=== PATIENT | female | born 1990 | race Two or more races ===

== ENCOUNTER 2021-12-20 06:25 | Inpatient (IN) | payer OTHER ==
[2021-12-20 07:36] VITALS: BMI 43.4
[2021-12-20] MEDS ORDERED: CITRIC ACID/SODIUM CITRATE 30 ML UNIT-DOSE CUP PO ONE (07:38)
[2021-12-20] MEDS ORDERED: ELECTROLYTE-148 SOLN 1,000 ML IV SCH (07:45)
[2021-12-20] MEDS ORDERED: morphine SULFATE/PF 1 MG/2 ML (2cc Syringe - QUVA) ONE (07:52)
[2021-12-20] MEDS ORDERED: PHENYLEPHRINE HCL 10 MG/1 ML SINGLE DOSE VIAL ONE (07:53)
[2021-12-20] MEDS ORDERED: ePHEDrine SULFATE 50 MG/1 ML AMPULE ONE (07:53)
[2021-12-20] MEDS ORDERED: PROPOFOL 20 ML ONE (07:53)
[2021-12-20] MEDS ORDERED: SUCCINYLCHOLINE CHLORIDE 200 MG/10 ML SYRINGE ONE ×2 (07:53→12:49)
[2021-12-20] MEDS ORDERED: ACETAMINOPHEN 325 MG TABLET (FP) PO PRN (09:30)
[2021-12-20] MEDS ORDERED: METHYLERGONOVINE MALEATE 0.2 MG/1 ML AMP IM PRN (09:30)
[2021-12-20] MEDS ORDERED: morphine SULFATE/PF 1 MG/2 ML (2cc Syringe - QUVA) EP ONE (09:37)
[2021-12-20] MEDS ORDERED: ONDANSETRON 4 MG/2 ML VIAL IVPUSH PRN (09:37)
[2021-12-20] MEDS ORDERED: ONDANSETRON 4 MG/2 ML VIAL ONE (09:46)
[2021-12-20] MEDS: PRENATAL VITAMINS W/ FOLIC ACID TABLET (FP) PO SCH (11:35)
[2021-12-20] MEDS ORDERED: DEXAMETHASONE SOD PHOSPHATE 4 MG/1 ML VIAL ONE (12:47)
[2021-12-20] MEDS ORDERED: PROPOFOL 40 ML ONE (12:49)
[2021-12-20] MEDS ORDERED: ROCURONIUM BROMIDE 50 MG/5 ML SYRINGE ONE (12:49)
[2021-12-20] MEDS ORDERED: MIDAZOLAM HCL 2 MG/2 ML SINGLE DOSE VIAL ONE (12:50)
[2021-12-20] MEDS: OXYTOCIN 20 UNITS in 0.9% NS 20 UNIT/1,000 ML INFUS.BAG IV SCH ×2 (14:00→18:00)
[2021-12-20] MEDS ORDERED: ceFAZolin SODIUM 1 GM VIAL IVPB ONE (14:23)
[2021-12-20 14:35] LABS: HEMATOCRIT 32.6 % (32.4-45.2); MCH 29.1 pg (25.7-33.7); MCHC 33.7 g/dl (32.0-36.0); MEAN CELL VOLUME 86.4 fl (80-96); MEAN PLT VOLUME 9.9 fl (7.5-11.1); PLATELET COUNT 179 10^3/uL (134-434); RBC 3.77 M/mm3 (3.60-5.2); RDW 13.1 % (11.6-15.6); WHITE BLOOD COUNT 15.2 K/mm3 (4.0-10.0)
[2021-12-20] MEDS ORDERED: NEOSTIGMINE METHYLSULFATE 0.5 MG/ML - 10 ML MDV ONE (15:20)
[2021-12-20] MEDS ORDERED: TAMSULOSIN HCL 0.4 MG CAP PO ONE (15:36)
[2021-12-20] MEDS ORDERED: oxyCODONE HCL 5 MG TABLET PO PRN (21:30)
[2021-12-20] MEDS: CEPHALEXIN MONOHYDRATE 500 MG CAPSULE (UD) PO SCH (22:48)
[2021-12-21] MEDS: LACTATED RINGERS SOLUTION 1,000 ML IV SCH (01:30)
[2021-12-21 08:00] LABS: BASO % 0.2 % (0-2.0); HEMATOCRIT 26.2 % (32.4-45.2); HEMOGLOBIN 8.9 GM/dL (10.7-15.3); LYMPH % 9.5 % (8-40); MCH 29.3 pg (25.7-33.7); MEAN CELL VOLUME 86.3 fl (80-96); MEAN PLT VOLUME 9.7 fl (7.5-11.1); MONO % 6.5 % (3.8-10.2); NEUT % 83.8 % (42.8-82.8); PLATELET COUNT 159 10^3/uL (134-434); RBC 3.04 M/mm3 (3.60-5.2); RDW 13.5 % (11.6-15.6); WHITE BLOOD COUNT 14.7 K/mm3 (4.0-10.0)
[2021-12-21] MEDS: PRENATAL VITAMINS W/ FOLIC ACID TABLET (FP) PO SCH (09:24)
[2021-12-21] MEDS ORDERED: BISACODYL 10 MG SUPP.RECT RC PRN (09:30)
[2021-12-21] MEDS: CEPHALEXIN MONOHYDRATE 500 MG CAPSULE (UD) PO SCH (10:47)
[2021-12-21] MEDS: SOLIFENACIN SUCCINATE 5 MG TAB PO SCH (10:47)
[2021-12-21 18:05] VITALS: RESP 18
[2021-12-21] MEDS: IBUPROFEN 600 MG TABLET (FP) PO PRN (23:07)
[2021-12-22 08:13] LABS: HEMATOCRIT 26.1 % (32.4-45.2); HEMOGLOBIN 8.9 GM/dL (10.7-15.3); MCH 29.9 pg (25.7-33.7); MCHC 34.3 g/dl (32.0-36.0); MEAN CELL VOLUME 87.2 fl (80-96); MEAN PLT VOLUME 9.3 fl (7.5-11.1); PLATELET COUNT 157 10^3/uL (134-434); RBC 2.99 M/mm3 (3.60-5.2); RDW 13.6 % (11.6-15.6); WHITE BLOOD COUNT 11.6 K/mm3 (4.0-10.0)
[2021-12-22 08:40] LABS: CALCIUM 8.2 mg/dL (8.5-10.1)
[2021-12-22 08:41] LABS: BLOOD UREA NITROGEN 13.3 mg/dL (7-18)
[2021-12-22 08:52] LABS: CREATININE 0.4 mg/dL (0.55-1.3)
[2021-12-22] MEDS: PRENATAL VITAMINS W/ FOLIC ACID TABLET (FP) PO SCH (10:36)
[2021-12-22] MEDS: SOLIFENACIN SUCCINATE 5 MG TAB PO SCH (10:36)
[2021-12-22] MEDS: IBUPROFEN 600 MG TABLET (FP) PO PRN ×2 (12:32→23:14)
[2021-12-22] MEDS: SIMETHICONE 80 MG TAB.CHEW (FP) PO PRN ×2 (14:26→23:14)
[2021-12-23 07:21] LABS: BASO % 0.2 % (0-2.0); EOS % 1.2 % (0-4.5); HEMATOCRIT 27.3 % (32.4-45.2); LYMPH % 7.8 % (8-40); MCH 29.4 pg (25.7-33.7); MCHC 33.1 g/dl (32.0-36.0); MEAN CELL VOLUME 88.7 fl (80-96); MEAN PLT VOLUME 9.1 fl (7.5-11.1); MONO % 5.3 % (3.8-10.2); NEUT % 85.5 % (42.8-82.8); PLATELET COUNT 185 10^3/uL (134-434); RBC 3.08 M/mm3 (3.60-5.2); RDW 13.7 % (11.6-15.6); WHITE BLOOD COUNT 17.3 K/mm3 (4.0-10.0)
[2021-12-23] MEDS: PRENATAL VITAMINS W/ FOLIC ACID TABLET (FP) PO SCH (10:41)
[2021-12-23] MEDS: IBUPROFEN 600 MG TABLET (FP) PO PRN ×2 (10:41→21:07)
[2021-12-23] MEDS: SOLIFENACIN SUCCINATE 5 MG TAB PO SCH (10:41)
[2021-12-23] MEDS: LACTATED RINGERS SOLUTION 1,000 ML IV SCH ×2 (19:54→19:55)
[2021-12-23] MEDS: OXYTOCIN 20 UNITS in 0.9% NS 20 UNIT/1,000 ML INFUS.BAG IV SCH (19:54)
[2021-12-23] MEDS: SIMETHICONE 80 MG TAB.CHEW (FP) PO PRN (21:07)
[2021-12-24 09:10] LABS: BASO % 0.3 % (0-2.0); EOS % 3.7 % (0-4.5); HEMATOCRIT 28.7 % (32.4-45.2); HEMOGLOBIN 9.7 GM/dL (10.7-15.3); LYMPH % 11.1 % (8-40); MCHC 33.9 g/dl (32.0-36.0); MEAN CELL VOLUME 88.5 fl (80-96); MONO % 6.8 % (3.8-10.2); NEUT % 78.1 % (42.8-82.8); PLATELET COUNT 212 10^3/uL (134-434); RBC 3.24 M/mm3 (3.60-5.2); RDW 13.7 % (11.6-15.6); WHITE BLOOD COUNT 10.7 K/mm3 (4.0-10.0)
[2021-12-24 09:32] VITALS: BP 115/71; PULSE 91; TEMP 98.2
[2021-12-24 09:40] LABS: BLOOD UREA NITROGEN 11.9 mg/dL (7-18); CALCIUM 8.7 mg/dL (8.5-10.1)
[2021-12-24 09:43] LABS: CREATININE 0.4 mg/dL (0.55-1.3)
[2021-12-24] MEDS: PRENATAL VITAMINS W/ FOLIC ACID TABLET (FP) PO SCH (10:11)
[2021-12-24] MEDS: SOLIFENACIN SUCCINATE 5 MG TAB PO SCH (10:11)
== END 2021-12-24 12:00 | disposition home or self-care (01) | DRG 540 ==
LOC: JLDR 06:25 → J3W 13:30
PROVIDERS: ADMIT Obstetrics & Gynecology; ATTEND Obstetrics & Gynecology
PROC: 0DNW0ZZ Release Peritoneum, Open Approach (ICD-10-PCS; 2021-12-20)
PROC: 0TQB0ZZ Repair Bladder, Open Approach (ICD-10-PCS; 2021-12-20)
PROC: 0T9B80Z Drainage of Bladder with Drainage Device, Via Natural or Artificial Opening Endoscopic (ICD-10-PCS; 2021-12-20)
PROC: 0TJB8ZZ Inspection of Bladder, Via Natural or Artificial Opening Endoscopic (ICD-10-PCS; 2021-12-20)
PROC: 10D00Z1 Extraction of Products of Conception, Low, Open Approach (ICD-10-PCS; principal; 2021-12-20 12:00)
PROC: 0UL70ZZ Occlusion of Bilateral Fallopian Tubes, Open Approach (ICD-10-PCS; 2021-12-20 12:00)
DX: O34.219 Maternal care for unspecified type scar from previous cesarean delivery (principal); R31.0 Gross hematuria; Z30.2 Encounter for sterilization; K66.0 Peritoneal adhesions (postprocedural) (postinfection); Z3A.36 36 weeks gestation of pregnancy; Z37.0 Single live birth; S37.23XA Laceration of bladder, initial encounter; X58.XXXA Exposure to other specified factors, initial encounter; Y92.234 Operating room of hospital as the place of occurrence of the external cause
CPT/HCPCS: 0241U-QW; 36415; 51600; 74430-TC-FY; 80048; 85025; 85027; 86780; 86850; 86900; 86901; 86922; 87040; 87086; 88302-TC; 88307-TC; 94760; C9803-CS; U0003; U0005

== ENCOUNTER → 2022-01-05 | Day surgery (SDC) | payer OTHER | END | disposition home or self-care (01) | LOC: JRADIR 08:36 | PROVIDERS: ATTEND Urology | PROC: BT10YZZ Fluoroscopy of Bladder using Other Contrast (ICD-10-PCS; principal; 2022-01-05) | PROC: BT04YZZ Plain Radiography of Kidneys, Ureters and Bladder using Other Contrast (ICD-10-PCS; 2022-01-05) | DX: S37.20XD Unspecified injury of bladder, subsequent encounter (principal); X58.XXXD Exposure to other specified factors, subsequent encounter | CPT/HCPCS: 51600; 74430-TC-FY; 76000-TC-FY; Q9967 ==

== ENCOUNTER 2023-06-23 15:31 | Emergency (ER) | payer OTHER ==
[2023-06-23 15:44] VITALS: RESP 18; BMI 40.7
[2023-06-23] MEDS ORDERED: ACETAMINOPHEN 500 MG TABLET (FP) ONE (17:39)
[2023-06-23] MEDS ORDERED: IBUPROFEN 600 MG TABLET (FP) PO ONE (17:39)
[2023-06-23] MEDS: ACETAMINOPHEN 500 MG TABLET (FP) PO ONE (17:46)
[2023-06-23] MEDS: IBUPROFEN 600 MG TABLET (FP) PO ONE (17:46)
[2023-06-23] MEDS: CEPHALEXIN MONOHYDRATE 500 MG CAPSULE (UD) PO ONE (18:12)
[2023-06-23] MEDS ORDERED: AMOX TR/POT CLAV 875MG/125MG TABLETS (FP) ONE (18:19)
[2023-06-23] MEDS: AMOX TR/POT CLAV 875MG/125MG TABLETS (FP) PO ONE (18:23)
[2023-06-23 19:26] VITALS: BP 113/76; TEMP 98.8
[2023-06-23 19:27] VITALS: PULSE 79
== END 2023-06-23 20:30 | disposition home or self-care (01) ==
LOC: JER 15:31
DX: N61.0 Mastitis without abscess (principal); R50.9 Fever, unspecified; R51.9 Headache, unspecified
CPT/HCPCS: 99283-25